=== PATIENT | male | born 1955 | race Caucasian/White ===

== ENCOUNTER 2023-03-12 17:15 | Emergency (ER) | payer MEDICARE, BC ==
[2023-03-12] MEDS ORDERED: Meclizine HCl 25 MG TAB ONE (17:42)
[2023-03-12 18:13] LABS: ALT (SGPT) 81 U/L (8-55); AST (SGOT) 66 U/L (5-34); Albumin 4.1 g/dL (3.4-4.8); Alkaline Phosphatase 70 U/L (40-110); Anion Gap 15 mmol/L (10-20); BUN (Urea Nitrogen) 12 mg/dL (8.4-25.7); Bilirubin, Total 1.1 mg/dL (0.2-1.2); Calc. Creatinine Clearance 0 mL/min (70-130); Calcium 9.7 mg/dL (7.8-10.44); Carbon Dioxide 25 mmol/L (23-31); Chloride 102 mmol/L (98-107); Estimated GFR 88; Globulin 3.7 g/dL (2.4-3.5); Glucose 70 mg/dL (80-115); Protein, Total 7.8 g/dL (5.8-8.1); Sodium 138 mmol/L (136-145)
[2023-03-12 18:16] LABS: %Basophils 1.4 % (0.0-2.0); %Eosinophils 2.7 % (0.0-6.0); %Lymphocytes 22.3 % (18.0-47.0); %Monocytes 18.9 % (0.0-10.0); %Neutrophils 54.4 % (40.0-75.0); Hematocrit 51.5 % (38.8-50.0); Mean Corpuscular Hemoglobin 32.5 pg (27.0-33.0); Mean Corpuscular Volume 93.1 fl (81.2-95.1); Mean Platelet Volume 10.1 fl (7.4-10.4); Platelet Count 209 10x3/uL (150-450); RBC Distribution Width 11.2 % (11.5-14.5); Red Blood Cell (RBC) Count 5.53 10x6/uL (4.32-5.72); White Blood Cell (WBC) Count 6.6 10x3/uL (3.5-10.5)
[2023-03-12 18:17] LABS: #Basophils 0.1 10x3/uL (0.0-0.2); #Eosinphils 0.2 10x3/uL (0.0-0.5); #Monocytes 1.3 10x3/uL (0.0-1.1); #Neutrophils 3.6 10x3/uL (1.5-8.4)
[2023-03-12 18:37] LABS: SARS-CoV-2 NAA Rapid Test Not Detected (NotDetected)
== END 2023-03-12 18:52 | disposition home or self-care (01) ==
LOC: CSHERS 17:15
DX: H81.13 Benign paroxysmal vertigo, bilateral (principal); F17.210 Nicotine dependence, cigarettes, uncomplicated; I10 Essential (primary) hypertension; Z20.822 Contact with and (suspected) exposure to COVID-19
CPT/HCPCS: 0240U; 71045; 80053; 85025; 93005